=== PATIENT | female | born 1990 | race Caucasian/White ===

== ENCOUNTER 2017-11-08 14:09 | Emergency (ER) | payer OTHER ==
[2017-11-08] MEDS ORDERED: Lidocaine 1% w Epi 1:100,000 Inj IJ STA (14:31)
[2017-11-08] MEDS ORDERED: Lidocaine 1% Inj (20ml) ONE (14:40)
--- NOTE | 2017-11-08 15:31 | ED PDOC ---
Arrival/HPI - General Chief Complaint: Abnormal Skin Integrity Time Seen by Provider: 11/08/17 14:31 Historian: Patient, Spouse - History of Present Illness Narrative History of Present Illness (Text): 11/08/17 14:31 This 27 yo female who denies pmh presents to this ED c/o right buttock and right foot laceration x 40 minutes. Patient stated she sat on a glass coffee table. She stated glass shattered, causing laceration. Patient denies other complains. Patient is UTD Tetanus (2 years) Time/Duration: Other (see hpi) Context: Home Past Medical History - Provider Review Nursing Documentation Reviewed: Yes - Psychiatric Hx Psychophysiologic Disorder: No Hx Substance Use: No Family/Social History - Physician Review Nursing Documentation Reviewed: Yes Family/Social History: Other (noncontributory) Smoking Status: Never Smoked Hx Alcohol Use: Yes Frequency of alcohol use: Socially Hx Substance Use: No Allergies/Home Meds Allergies/Adverse Reactions: Allergies No Known Allergies Allergy (Verified 11/08/17 14:11) Review of Systems - Review of Systems Constitutional: Normal. absent: Fatigue, Weight Change, Fevers Eyes: Normal ENT: Normal Respiratory: Normal Cardiovascular: Normal Gastrointestinal: Normal Genitourinary Female: Normal Musculoskeletal: Normal Skin: Laceration (see hpi) Neurological: Normal Endocrine: Normal Hemo/Lymphatic: Normal Psychiatric: Normal Physical Exam Vital Signs Temp Pulse Resp BP Pulse Ox 11/08/17 14:11 97.8 F 85 16 101/72 97 Temperature: Afebrile Blood Pressure: Normal Pulse: Regular Respiratory Rate: Normal Appearance: Positive for: Well-Appearing, Non-Toxic, Comfortable Pain Distress: None Mental Status: Positive for: Alert and Oriented X 3 - Systems Exam Head: Present: Atraumatic, Normocephalic Pupils: Present: PERRL Extroacular Muscles: Present: EOMI Conjunctiva: Present: Normal Mouth: Present: Moist Mucous Membranes Neck: Present: Normal Range of Motion Back: Present: Normal Inspection Upper Extremity: Present: Normal Inspection, Normal ROM, NORMAL PULSES. No: Cyanosis, Edema Lower Extremity: Present: NORMAL PULSES, Normal ROM, Other ((+) right posterior foot has 2 laceration. 1.5 cm, and 0.8 cm, single layer). No: Edema Neurological: Present: GCS=15, CN II-XII Intact, Speech Normal Skin: Present: Warm, Dry, Normal Color, Laceration (Also. 3 laceratior poterior right buttock. 5 cm, 3.5 cm, and 1 cm, single layer). No: Rashes Psychiatric: Present: Alert, Oriented x 3, Normal Insight, Normal Concentration Medical Decision Making ED Course and Treatment: 11/08/17 15:33 Re-evaluation. Patient feels better. Discussed results and plan with patient who expresses understanding. All questions answered and there is agreement with the plan to discharge home with instructions. Patient stable for discharge. Return if symptoms persist or worsen Re-evaluation Time: 15:33 Reassessment Condition: Re-examined, Improved - Procedure PROCEDURE NOTE (Text): 11/08/17 15:35 PROCEDURE: LACERATION REPAIR Performed by the emergency provider Location: right buttock x 3, and right posterior foot x 2 Length: 5 wounds with a combined total of 11.8 cm Description: clean wound edges , no foreign bodies Distal CMS: Normal. No deficits. Neurovascularly intact. Anesthesia: Lidocaine 1% with epi, total amount of 4 cc Preparation: The wound was cleaned with NS and Betadyne. The area was prepped and draped in the usual sterile fashion. Exploration: The wound was explored and no foreign bodies were found. Procedure: The wound was closed with Vicryl, 5-0, and Dermabond on buttocks only. There was good approximation. In total, 12 were used. Post-Procedure: Good closure and hemostasis. The patient tolerated the procedure well and there were no complications. CSM remains intact. Post procedure dressing applied. Disposition/Present on Arrival - Present on Arrival Any Indicators Present on Arrival: No History of DVT/PE: No History of Uncontrolled Diabetes: No Urinary Catheter: No History of Decub. Ulcer: No History Surgical Site Infection Following: None - Disposition Have Diagnosis and Disposition been Completed?: Yes Diagnosis: Laceration of right buttock, Laceration of right foot Disposition: HOME/ ROUTINE Disposition Time: 15:40 Patient Plan: Discharge Condition: IMPROVED Discharge Instructions (ExitCare): Laceration Repair With Stitches (DC) Additional Instructions: Call private doctor for wound check in 2-3 days. Sutures will fall off by themselves. Keep wound clean and dry for 2 days, then clean wound daily with soap and water. Return to emergency if symptoms worsen. Prescriptions: Cephalexin [cephalexin] 500 mg PO QID #20 cap Referrals: Ayala Amin MD [Primary Care Provider] - Follow up with primary
[2017-11-08 15:53] VITALS: BP 123/78; PULSE 72; RESP 18; TEMP 98.6; O2SAT 99
== END 2017-11-08 15:51 | disposition home or self-care (01) ==
LOC: ED 14:09 → MERGE 14:09 → ED 15:51
DX: S91.311A Laceration without foreign body, right foot, initial encounter (principal); S31.811A Laceration without foreign body of right buttock, initial encounter; W25.XXXA Contact with sharp glass, initial encounter; Y92.009 Unspecified place in unspecified non-institutional (private) residence as the place of occurrence of the external cause